=== PATIENT | female | born 1960 | race African-American/Black ===

== ENCOUNTER 2017-09-19 11:04 | Emergency (ER) | payer BC, OTHER ==
[2017-09-19 11:13] VITALS: TEMP 98.2
--- NOTE | 2017-09-19 12:16 | PDOC ---
*Physical Exam - Vital Signs Last Vital Signs Temp Pulse Resp BP Pulse Ox 98.2 F 82 18 142/86 99 09/19/17 11:10 09/19/17 11:10 09/19/17 11:10 09/19/17 11:10 09/19/17 11:10 ED Treatment Course - LABORATORY CBC & Chemistry Diagram: 09/19/17 12:40 09/19/17 12:40 Medical Decision Making - Medical Decision Making 09/19/17 15:08 Pt seen by the Advanced Practice Provider under my direct supervision Ancillary studies reviewed I agree with plan as outlined by the Advanced Practice Provider *DC/Admit/Observation/Transfer Diagnosis at time of Disposition: Headache Qualifiers: Headache type: unspecified Headache chronicity pattern: acute headache Intractability: not intractable Qualified Code(s): R51 - Headache - Discharge Dispostion Disposition: HOME - Referrals Referrals: STAFF,NOT ON [Primary Care Provider] - - Patient Instructions Printed Discharge Instructions: DI for Headache Additional Instructions: Follow-up with your primary care doctor for your elevated blood pressure readings within 1 week. The name of the blood pressure cuff discussed is the Omron blood pressure cuff. Return to emergency department if you have any new, worsening or concerning symptoms. - Post Discharge Activity - Attestations Physician Attestion: 09/19/17 15:08 I, Dr. Celina Guadalupe MD, attest that this document has been prepared under my direction and personally reviewed by me in its entirety. I further attest, that it accurately reflects all work, treatment, procedures and medical decision -making performed by me.
[2017-09-19] MEDS ORDERED: ACETAMINOPHEN 500 MG TABLET (FP) PO ONE (12:37)
[2017-09-19 12:42] LABS: URINE APPEARANCE CLEAR; URINE BILIRUBIN NEGATIVE (NEGATIVE); URINE BLOOD 2+ (NEGATIVE); URINE COLOR STRAW; URINE GLUCOSE (UA) NEGATIVE (NEGATIVE); URINE KETONE NEGATIVE (NEGATIVE); URINE NITRITE NEGATIVE (NEGATIVE); URINE PROTEIN NEGATIVE (NEGATIVE); URINE UROBILINOGEN NEGATIVE mg/dL (0.2-1.0)
[2017-09-19] MEDS ORDERED: ACETAMINOPHEN 325 MG TABLET (FP) ONE (12:49)
[2017-09-19 12:53] LABS: BASOPHIL 0.6 % (0-2.0); EOSINOPHIL 1.5 % (0-4.5); MCH 27.3 pg (25.7-33.7); MCHC 32.5 g/dl (32.0-36.0); MEAN CELL VOLUME 83.9 fl (80-96); MEAN PLT VOLUME 8.1 fl (7.5-11.1); NEUTROPHILS 73.2 % (42.8-82.8); PLATELET COUNT 329 K/MM3 (134-434); RDW 13.3 % (11.6-15.6)
[2017-09-19 13:19] LABS: ALBUMIN 3.6 g/dl (3.4-5.0); ANION GAP 8 (8-16); BILIRUBIN,TOTAL 0.4 mg/dL (0.2-1.0); CALCIUM 9.8 mg/dL (8.5-10.1); CO2 28 mmol/L (21-32); CREATININE 0.6 mg/dL (0.55-1.02); GLUCOSE,RANDOM 157 mg/dL (74-106); SGOT/AST 18 U/L (15-37); SGPT/ALT 30 U/L (12-78); TOT PROT 7.5 g/dl (6.4-8.2)
[2017-09-19 13:20] LABS: ALK PHOS 105 U/L (45-117)
--- NOTE | 2017-09-19 13:33 | PDOC ---
History of Present Illness - General Chief Complaint: Blood Pressure Problem Stated Complaint: HEADACHE, BLOOD PRESSURE PROBLEM Time Seen by Provider: 09/19/17 12:11 History Source: Patient Exam Limitations: No Limitations - History of Present Illness Initial Comments: 09/19/17 13:00 57-year-old female presents to the ED with complaints of generalized throbbing pressure in her head for the past few days intermittently without visual changes , nausea or dizziness. 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 At that time he started her on a medication which she cannot recall and took it that night. Patient states since she stayed home on Saturday and her symptoms did not improve so she did not take a second dose of the medication on Saturday. Pt states today went back to school and had a blood pressure recorded at 180/86 and so decided to come to the ER. Patient upon arrival here has normal vital signs. Patient also has no complaints of visual changes, shortness of breath, chest pain, abdominal pain, nausea, lower extremity edema, recent travel or recent illness. Patient does state history of vertigo but has not had symptoms for numerous years but does have a neurologist in the [place]. Patient states history of migraines in adolescence but describes different symptoms today. Timing/Duration: intermittent Severity: mild Associated Symptoms: reports: headaches. denies: chest pain, diaphoresis, fever /chills, nausea/vomiting, shortness of breath, weakness Past History - Past Medical History Allergies/Adverse Reactions: Allergies Allergy/AdvReac Type Severity Reaction Status Date / Time Penicillins Allergy Verified 09/19/17 11:13 Home Medications: Ambulatory Orders NK [No Known Home Medication] 09/19/17 COPD: No HTN: Yes Other medical history: Fibromyalgia - Suicide/Smoking/Psychosocial Hx Smoking History: Never smoked Information on smoking cessation initiated: Yes Hx Alcohol Use: No Drug/Substance Use Hx: No Substance Use Type: None Patient Lives Alone: No Lives with/in: spouse/SO Review of Systems - Review of Systems Able to Perform ROS?: Yes Constitutional: No: Symptoms Reported HEENTM: No: Symptoms Reported Respiratory: No: Symptoms reported Cardiac (ROS): No: Chest Pain, Lightheadedness Musculoskeletal: No: Symptoms Reported Integumentary: No: Symptoms Reported Neurological: Yes: Headache. No: Dizziness Hematologic/Lymphatic: No: Symptoms Reported *Physical Exam - Vital Signs Last Vital Signs Temp Pulse Resp BP Pulse Ox 98.2 F 82 18 142/86 99 09/19/17 11:10 09/19/17 11:10 09/19/17 11:10 09/19/17 11:10 09/19/17 11:10 - Physical Exam General Appearance: Yes: Nourished, Appropriately Dressed. No: Apparent Distress HEENT: positive: EOMI, ENOC. negative: Pale Conjunctivae Neck: positive: Supple Respiratory/Chest: positive: Lungs Clear, Normal Breath Sounds. negative: Respiratory Distress, Accessory Muscle Use Cardiovascular: positive: Regular Rhythm, Regular Rate. negative: Murmur Gastrointestinal/Abdominal: positive: Soft. negative: Tenderness Extremity: positive: Normal Capillary Refill. negative: Pedal Edema Integumentary: positive: Normal Color, Warm, Moist Neurologic: positive: Motor Strength 5/5 (ambulatory) Heart Score/ECG Review - ECG Intrepretation Rhythm: Regular Rhythm (rate 84. No st elevation or depression. Intervals are reg) ED Treatment Course - LABORATORY CBC & Chemistry Diagram: 09/19/17 12:40 09/19/17 12:40 - ADDITIONAL ORDERS Additional order review: Laboratory Results 09/19/17 09/19/17 12:40 12:14 Sodium 142 Potassium 4.0 Chloride 106 Carbon Dioxide 28 Anion Gap 8 BUN 10 Creatinine 0.6 Creat Clearance w eGFR > 60 Random Glucose 157 H Calcium 9.8 Total Bilirubin 0.4 AST 18 ALT 30 Alkaline Phosphatase 105 Total Protein 7.5 Albumin 3.6 Urine Color Straw Urine Appearance Clear Urine pH 5.0 Ur Specific [place] 1.005 Urine Protein Negative Urine Glucose (UA) Negative Urine Ketones Negative Urine Blood 2+ H Urine Nitrite Negative Urine Bilirubin Negative Urine Urobilinogen Negative 09/19/17 12:40 RBC 4.71 MCV 83.9 MCHC 32.5 RDW 13.3 MPV 8.1 Neutrophils % 73.2 Lymphocytes % 20.8 Monocytes % 3.9 Eosinophils % 1.5 Basophils % 0.6 - RADIOLOGY Radiology Studies Ordered: Category Date Time Status HEAD CT WITHOUT CONTRAST [CT] Stat CT Scan 09/19/17 12:35 Ordered CHEST X-RAY PORTABLE* [RAD] Stat Radiology 09/19/17 12:36 Ordered - Medications Given in the ED: ED Medications Discontinued Medications Generic Name Dose Route Start Last Admin Trade Name Paige PRAlayna Reason Stop Dose Admin Acetaminophen 975 mg 09/19/17 12:37 09/19/17 12:47 Tylenol - PO 09/19/17 12:38 975 mg ONCE ONE Administration Medical Decision Making - Medical Decision Making 09/19/17 14:00 Patient here for evaluation of headache and subjective elevated blood pressure. Patient currently with complaints of generalized throbbing pressure in her head without visual changes, chest pain, shortness of breath or edema. Patient unable to recall medication that she was placed on Saturday and does not have the medication with her and states is unable to get HOLD of her to see what pharmacy he went to. Patient with normal vital signs and no acute findings on exam. Patient was ordered for head CT, blood work, urine EKG and Tylenol. 09/19/17 14:01 Laboratory Tests 09/19/17 09/19/17 09/19/17 12:14 12:40 12:40 WBC 9.0 Hgb 12.9 Hct 39.5 Plt Count 329 Neutrophils % 73.2 Sodium 142 Potassium 4.0 Chloride 106 Carbon Dioxide 28 Anion Gap 8 BUN 10 Creatinine 0.6 Creat Clearance w eGFR > 60 Random Glucose 157 H AST 18 ALT 30 Urine Blood 2+ H Urine Nitrite Negative Ur Leukocyte Esterase Pending 09/19/17 14:24 Patient states feeling somewhat better. Head CT pending. Endorsed to resident. *DC/Admit/Observation/Transfer Diagnosis at time of Disposition: Headache - Discharge Dispostion Disposition: HOME - Referrals Referrals: STAFF,NOT ON [Primary Care Provider] - - Patient Instructions Printed Discharge Instructions: DI for Headache Additional Instructions: Follow-up with your primary care doctor for your elevated blood pressure readings within 1 week. The name of the blood pressure cuff discussed is the Omron blood pressure cuff. Return to emergency department if you have any new, worsening or concerning symptoms. - Post Discharge Activity
--- NOTE | 2017-09-19 14:48 | PDOC ---
*Physical Exam - Vital Signs Last Vital Signs Temp Pulse Resp BP Pulse Ox 98.2 F 82 18 142/86 99 09/19/17 11:10 09/19/17 11:10 09/19/17 11:10 09/19/17 11:10 09/19/17 11:10 ED Treatment Course - LABORATORY CBC & Chemistry Diagram: 09/19/17 12:40 09/19/17 12:40 - ADDITIONAL ORDERS Additional order review: Laboratory Results 09/19/17 09/19/17 12:40 12:14 Sodium 142 Potassium 4.0 Chloride 106 Carbon Dioxide 28 Anion Gap 8 BUN 10 Creatinine 0.6 Creat Clearance w eGFR > 60 Random Glucose 157 H Calcium 9.8 Total Bilirubin 0.4 AST 18 ALT 30 Alkaline Phosphatase 105 Total Protein 7.5 Albumin 3.6 Urine Color Straw Urine Appearance Clear Urine pH 5.0 Ur Specific [place] 1.005 Urine Protein Negative Urine Glucose (UA) Negative Urine Ketones Negative Urine Blood 2+ H Urine Nitrite Negative Urine Bilirubin Negative Urine Urobilinogen Negative 09/19/17 12:40 RBC 4.71 MCV 83.9 MCHC 32.5 RDW 13.3 MPV 8.1 Neutrophils % 73.2 Lymphocytes % 20.8 Monocytes % 3.9 Eosinophils % 1.5 Basophils % 0.6 - Medications Given in the ED: ED Medications Discontinued Medications Generic Name Dose Route Start Last Admin Trade Name Paige PRN Reason Stop Dose Admin Acetaminophen 975 mg 09/19/17 12:37 09/19/17 12:47 Tylenol - PO 09/19/17 12:38 975 mg ONCE ONE Administration Medical Decision Making - Medical Decision Making 09/19/17 14:44 Care taken over from DESIRE Hernandez. Head CT negative. Given history of elevated BP noted only at school suspect cause may be faulty cuff or similar. Will instruct to follow-up with neurologist outpatient as workup here negative - No acute findings on UA, CBC/CMP. No white count, EKG normal. 09/19/17 14:46 Laboratory Results - last 24 hr 09/19/17 09/19/17 09/19/17 12:14 12:40 12:40 WBC 9.0 RBC 4.71 Hgb 12.9 Hct 39.5 MCV 83.9 MCH 27.3 MCHC 32.5 RDW 13.3 Plt Count 329 MPV 8.1 Neutrophils % 73.2 Lymphocytes % 20.8 Monocytes % 3.9 Eosinophils % 1.5 Basophils % 0.6 Sodium 142 Potassium 4.0 Chloride 106 Carbon Dioxide 28 Anion Gap 8 BUN 10 Creatinine 0.6 Creat Clearance w eGFR > 60 Random Glucose 157 H Calcium 9.8 Total Bilirubin 0.4 AST 18 ALT 30 Alkaline Phosphatase 105 Total Protein 7.5 Albumin 3.6 Urine Color Straw Urine Appearance Clear Urine pH 5.0 Ur Specific [place] 1.005 Urine Protein Negative Urine Glucose (UA) Negative Urine Ketones Negative Urine Blood 2+ H Urine Nitrite Negative Urine Bilirubin Negative Urine Urobilinogen Negative *DC/Admit/Observation/Transfer Diagnosis at time of Disposition: Headache Qualifiers: Headache type: unspecified Headache chronicity pattern: acute headache Intractability: not intractable Qualified Code(s): R51 - Headache - Discharge Dispostion Disposition: HOME - Referrals Referrals: STAFF,NOT ON [Primary Care Provider] - - Patient Instructions Printed Discharge Instructions: DI for Headache - Post Discharge Activity
[2017-09-19 16:20] LABS: TROPONIN I < 0.02 ng/ml (0.00-0.05)
[2017-09-19 16:22] VITALS: BP 151/79; PULSE 80
[2017-09-19 16:47] LABS: URINE LEUK ESTERASE 1+ (NEGATIVE)
== END 2017-09-19 16:24 | disposition home or self-care (01) ==
LOC: JER 11:04
DX: R51 Headache (principal); I10 Essential (primary) hypertension
CPT/HCPCS: 36415; 70450-TC; 80053; 81003; 81015; 84484; 85025; 99283-25

== ENCOUNTER 2022-04-24 08:51 | Emergency (ER) | payer BC, OTHER ==
[2022-04-24 09:01] VITALS: BP 145/83; PULSE 88; TEMP 98.1; BMI 32.3
[2022-04-24] MEDS ORDERED: IBUPROFEN 600 MG TABLET (FP) PO ONE ×2 (09:27→09:50)
== END 2022-04-24 10:38 | disposition home or self-care (01) ==
LOC: JERFT 08:51
DX: M25.552 Pain in left hip (principal)
CPT/HCPCS: 73502-TC-LT-FY; 99283-25

== ENCOUNTER 2022-05-14 12:58 | Observation (INO) | payer BC, OTHER ==
[2022-05-14 15:16] VITALS: BP 149/77; PULSE 75; RESP 18; TEMP 98.3; BMI 30.2
[2022-05-14 19:03] LABS: BASO % 0.8 % (0-2.0); EOS % 2.7 % (0-4.5); HEMATOCRIT 39.5 % (32.4-45.2); LYMPH % 54.2 % (8-40); MCH 26.6 pg (25.7-33.7); MCHC 32.9 g/dl (32.0-36.0); MEAN CELL VOLUME 80.8 fl (80-96); MEAN PLT VOLUME 8.4 fl (7.5-11.1); NEUT % 36.3 % (42.8-82.8); PLATELET COUNT 372 10^3/uL (134-434); RBC 4.89 M/mm3 (3.60-5.2); RDW 13.3 % (11.6-15.6); WHITE BLOOD COUNT 6.7 K/mm3 (4.0-10.0)
[2022-05-14 19:28] LABS: CALCIUM 9.7 mg/dL (8.5-10.1)
[2022-05-14 19:29] LABS: ALBUMIN 3.6 g/dl (3.4-5.0); BLOOD UREA NITROGEN 10.1 mg/dL (7-18); MAGNESIUM 2.2 mg/dL (1.8-2.4)
[2022-05-14 19:32] LABS: CREATININE 0.5 mg/dL (0.55-1.3)
[2022-05-14 19:33] LABS: TOT PROT 7.6 g/dl (6.4-8.2)
[2022-05-14 19:34] LABS: BILIRUBIN,TOTAL 0.5 mg/dL (0.2-1)
[2022-05-14 19:37] LABS: N-TERMINAL BNP 42.5 pg/ml (5-125)
[2022-05-14] MEDS ORDERED: ASPIRIN 81 MG CHEWABLE TABLETS PO ONE (21:00)
[2022-05-14] MEDS ORDERED: ASPIRIN 81 MG CHEWABLE TABLETS ONE (21:04)
[2022-05-14] MEDS ORDERED: ACETAMINOPHEN 325 MG TABLET (FP) PO PRN (22:34)
[2022-05-15] MEDS ORDERED: HYDROCORTISONE 1% TOPICAL CREAM 30 GM TUBE TP PRN (00:20)
[2022-05-15] MEDS ORDERED: ASPIRIN 81 MG CHEWABLE TABLETS PO SCH (10:00)
[2022-05-15] MEDS ORDERED: ENOXAPARIN NA (PORCINE) 40 MG/0.4 ML DISP.SYRIN SQ SCH (10:00)
== END 2022-05-15 01:20 | disposition home or self-care (01) ==
LOC: JER 12:58 → JERBED 21:06
PROVIDERS: ADMIT Hospitalist; ATTEND Hospitalist
DX: N76.0 Acute vaginitis (principal); R00.2 Palpitations; I10 Essential (primary) hypertension; Z88.0 Allergy status to penicillin
CPT/HCPCS: 36415; 71046-TC-FY; 80053; 83735; 83880; 84443; 84484; 85025; 85379; 93005; 93010; 99285-25; C9803-CS; G0378; U0003; U0005